=== PATIENT | male | born 1975 | race American Indian/Alaskan Native ===

== ENCOUNTER 2016-10-29 18:52 | Emergency (ER) | payer SELFPAY ==
[~2016-10-29] VITALS: Ht 165.1 cm; Wt 61.2 kg
[~2016-10-29 18:52] MED LIST: ASPIRIN 81MG TA81 MG PO; FLEXERIL10 MG PO; MEN'S ONE DAIL1 EACH PO; NOMEDS; NOMEDS XX; PROZAC 20MG CAP20 MG PO; TRAZADONE HYDR100 MG PO
--- NOTE | 2016-10-29 20:14 | Urgent Treatment Center Report ---
History of Present Issue Date/Time Seen by Provider 10/29/16 1900 Visit Reason Pt arrived:Walked Presenting Problem:PT ADVISES HE HAS A RASH AND WAS SCRATCHING AND NOW ONE OF HIS TESTICLES ARE BLEEDING Location if Accident: Onset of symptoms date/time:/ or onset unknown for:MEDICAL HX UNKNOWN Have you (or family members/close friends) recently traveled outside the [place]? N If Yes, where/when: Have you had exposure to infectious disease within the past month? TB? Other? Specify: Patient states that he has had a rash for over a month that itches worse at night, worse in his groin, axillary behind his knees. States that he has used several over the counter medications such as Cortisone to help with rash and itching but no relief. States that now it has been itching so bad that he noticed small areas of bleeding especially in his groin and under his arm. Source patient, family Exam Limitations no limitations ALLERGIES Coded Allergies: No Known Allergies (10/08/15) Home Medications Reported Medications No Known Home Medications History Medical History General CAD? No Angina: Yes [place]: No Hypertension? No Hyperlipidemia? No CHF? No DVT? No PE? No COPD? No Asthma? No Anemia? No GERD? No Gastric ulcers? No GI Bleed? No Hernia? No Thyroid Problems? No Hypothyroidism? No CVA? Yes Seizures? No Diabetes? No Insulin Dependent: No Insulin Pump: No Home FSBS? No Renal Insuffiency? No UTI? No Stones? No BPH? No GB Disease: No Nephritic Syndrome? No Asplenia? No Hepatitis? No Sickle Cell Disease? No Arthritis? No Migraines? No Cataracts? No Glaucoma? No MRSA? No HIV? No TB? No Anxiety? No Depression? Yes Cancer? No More? No Immunization HX DT/Tetanus Unknown Surgical Hx Previous Surgery?Y BROKEN LEG ARM Social History Smoking Hx Smoker: Current Every Day Smoker Tobacco: Yes Type Cigarettes Packs/day 1 1/2 - 2 Packs Alcohol Alcohol: Yes Review of Systems All Other Systems Reviewed and Negative Constitutional denies no symptoms reported, denies see HPI Eyes denies no symptoms reported, denies see HPI Skin rash, other (itchy rash for over a month) Physical Exam Vital Signs Vital Signs Date Time Temp Pulse Resp B/P Pulse O2 O2 Flow FiO2 Ox Delivery Rate 10/29 1919 99.4 98 16 132/95 98 Patient examined, observed intractable pruitits that is worse at night, Lesions noted on the flexor aspect of the wrist, Axillae, Buttocks, Genitalia, feet and behind knee. Patient had what appeared to be sepulveda threadlike tunnels on arms, legs chest. Patient states that the itching worsens at night and his brother that lives with him has had no symptoms Patient had scratched several spots in his groin area and noticed small spots of blood (KAREN LAU APRN) General Appearance normal appearance, itching mild irritation noted Respiratory Status Yes: trachea midline, chest symmetrical. No: respiratory distress. Cardiovascular normal exam Neurologic alert Medical Decision Making LABS/Meds/Orders Pt receiving controlled substance in ED? No Justice was queried for this patient? No Departure Departure Time of Disposition 2016 Disposition DC Home or Self Care(routine) Clinical Impression Primary Impression: Scabies infestation Condition STABLE Patient Instructions DI for Scabies, Permethrin Topical Additional Instructions Use Permethrin Cream as directed and repeat in 3 days if no improvement Follow up family doctor if no improvement of symptoms in 3-5 days Return to [facility] if needed Clean all bed linens as instructed Discharge Counseling Counseled pt/family regarding diagnosis, medications/RX, home care, follow up needs Prescriptions Current Visit Scripts Permethrin (Elimite 5% Cream; 60GM Tube) 60 GM TP ONCE #1 TUBE Ref 1 APPLY TO AFFECTED AREA(S); LEAVE ON FOR 10HRS, THEN RINSE OFF at 2017
[2016-10-29] MEDS ORDERED: ELIMITE 5%60 GM/TUB1 TP (20:16)
[2016-10-29 20:21] VITALS: BP 132/95
== END 2016-10-29 20:21 | disposition home or self-care (01) ==
LOC: UTC 18:52
DX: B86 Scabies (principal)

== ENCOUNTER 2017-05-09 21:58 | Emergency (ER) | payer SELFPAY ==
[~2017-05-09] VITALS: Ht 165.1 cm; Wt 59.0 kg
[~2017-05-09 21:58] MED LIST changes: +ELIMITE 5%60 GM/TUB1 TP
[2017-05-09] MEDS ORDERED: ASPIRIN 325MG325 MG PO (22:23)
[2017-05-09] MEDS ORDERED: TRAZADONE HYDR100 MG PO (22:24)
[2017-05-09] MEDS ORDERED: MULTIVITAMIN1 SGL PO (22:24)
--- OUTSIDE RECORDS SUMMARY | 2017-05-09 22:30 | External Medical Summary Rpt ---
Author Author , GÉNESIS CAPPS Address Unknown Phone [email or web address] Immunization Name Date Rout CVX Reac Dose Comm Prov Is Faci e tion ent ider Refu lity Give sed n Tdap 06-2 115 999 Hist H149 No H149 , 6-20 oric Adso 14 al rbed Info rmat ion - Sour ce Unsp ecif ied
--- OUTSIDE RECORDS SUMMARY | 2017-05-09 22:30 | External Medical Summary Rpt ---
Author Author [employer] Organization [employer] Address Unknown Phone Unavailable Purpose Continuity of Care Document - through 2016
--- OUTSIDE RECORDS SUMMARY | 2017-05-09 22:30 | External Medical Summary Rpt ---
Author Author [employer]OR Address Unknown Phone [email or web address] Purpose Continuity of Care Document - through 2016
--- OUTSIDE RECORDS SUMMARY | 2017-05-09 22:30 | External Medical Summary Rpt ---
Author Author IGOR Address Unknown Phone [email or web address] Purpose Continuity of Care Document - through 2016
--- OUTSIDE RECORDS SUMMARY | 2017-05-09 22:30 | External Medical Summary Rpt ---
Author Author , GÉNESIS CAPPS Address Unknown Phone [email or web address] Immunization Name Date Rout CVX Reac Dose Comm Prov Is Faci e tion ent ider Refu lity Give sed n Tdap 06-2 115 999 Hist H149 No H149 , 6-20 oric Adso 14 al rbed Info rmat ion - Sour ce Unsp ecif ied
--- NOTE | 2017-05-10 01:08 | Emergency Room Report ---
History of Present Illness Time Seen by [id number] Presenting Problem in Triage Pt arrived:Walked Presenting Problem:PT. STATES THAT DOG HAD BITTEN HIS TONGUE, LIP, AND SHE STATES HIS TONGUE IS SPLIT. PT. IS BLEEDING AND CAN'T GET IT TO STOP. 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 N Clinical Suspician of Infection? N Mental Status: 1 - Regular (Normal Baseline) Sepsis Risk:Possible Sepsis Risk Have you (or family members/close friends) recently traveled outside the [place]? N If Yes, where/when: Have you had exposure to infectious disease within the past month? N TB? Other? Specify: Source patient, RN notes reviewed, family, old records Exam Limitations no limitations Comment dog bite with known animal with facila/tongue injury Cardiac Chest Pain Chest pain indicative of cardiac No Timing/Duration this evening Severity moderate ALLERGIES Coded Allergies: No Known Allergies (10/08/15) Home Medications Active Scripts Permethrin (Elimite 5% Cream; 60GM Tube) 60 GM TP ONCE #1 TUBE Ref 1 Prov: 10/29/16 Reported Medications ASPIRIN (Aspirin 325MG) 325 MG PO DAILY MULTIVITAMIN (Multivitamins) 1 SGL PO DAILY Trazodone Hcl (Trazodone HCl) 100 MG PO QHSP PRN SLEEP History Medical History General CAD? No Angina: Yes CT: No Hypertension? No Hyperlipidemia? No CHF? No DVT? No PE? No COPD? No Asthma? No Anemia? No GERD? No Gastric ulcers? No GI Bleed? No Hernia? No Thyroid Problems? No Hypothyroidism? No CVA? Yes Seizures? No Diabetes? No Insulin Dependent: No Insulin Pump: No Home FSBS? No Renal Insuffiency? No End Stage Renal Disease? No UTI? No Stones? No BPH? No GB Disease: No Nephritic Syndrome? No Asplenia? No Hepatitis? No Sickle Cell Disease? No Arthritis? No Migraines? No Cataracts? No Glaucoma? No MRSA? No HIV? No TB? No Anxiety? No Depression? Yes Cancer? No More? No Immunization Hx DT/Tetanus Unknown Surgical Hx Previous Surgery?Y BROKEN LEG ARM Social History Smoking Hx Smoker: Current Every Day Smoker Tobacco: Yes Type Cigarettes Packs/day 1 1/2 - 2 Packs Alcohol Alcohol: Yes Drugs none Review of Systems All Other Systems Reviewed and Negative Constitutional denies fever Eyes denies drainage ENT see HPI. denies: ear discharge, epistaxis, throat pain, throat swelling. Respiratory denies cough, denies shortness of breath, denies wheezing Cardiovascular denies chest pain, denies palpitations, denies syncope Gastrointestinal denies abdominal pain, denies diarrhea, denies vomiting Genitourinary denies: dysuria, frequency, hesitancy, hematuria. Musculoskeletal denies back pain, denies joint pain, denies joint swelling, denies neck pain Skin see HPI, denies rash, other Psychiatric/Neurological denies headache, denies seizure Physical Exam Vital Signs Vital Signs Date Time Temp Pulse Resp B/P Pulse O2 O2 Flow FiO2 Ox Delivery Rate 05/09 2202 97.0 114 22 132/86 98 - WBC >12,000 or <4,000 or 10% bands? 2 or more SIRS Criteria Met? B/P:132/86 MAP:101 Creatinine >2.0? UA output<0.5ml/kg/hr for 2 hrs? Platelet count >100,000? Lactate >2.0mmol/1? INR >1.2 or PTT > than 60 sec? Evidence of Organ Dysfunction? Provider documented clinical suspician of infection? N Sepsis Criteria Count: 2 Sepsis Risk: Possible Sepsis Risk General Appearance no apparent distress Eye Exam - bilateral eye PERRL, bilateral eye EOMI Ear, Nose, Throat dental caries, gingival disease, no fx tooth and has 1 cm tongue laceration Neck supple Respiratory Status No: respiratory distress. 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 No Results/Orders Current Medication Orders Sig/Anam Start time Last Medication Dose Route Stop Time Status Admin Lidocaine HCl 0 .STK-MED ONE 05/09 2311 DC .ROUTE Procedures Laceration/Wound Repair Laceration/Wound Repair Risks/benefits discussed with pt/guardian? Yes Tetanus status up to date Wound Location tongue Wound Length (cm) 1 Wound's Depth, Shape sucutaneous tissue Wound Explored no FB identified Risk of retained FB explained to pt/guardian? Yes Irrigated w/ Saline (ccs) 0 Wound Prep Hibiclens, Saline Anesthesia 1% Lidocaine, Local Volume Anesthetic (ccs) 2 Wound Debrided none Wound Repaired With sutures Suture Size/Type 5:0, Vicryl Layer Closure No Total Number Sutures 5 Sterile Dressing Applied No Splint Applied No Sling Applied No Departure Departure Time of Disposition 0137 Disposition DC Home or Self Care(routine) Clinical Impression Primary Impression: Tongue laceration Qualifiers: Encounter type: initial encounter Qualified Code: S01.512A - Laceration without foreign body of oral cavity, initial encounter Secondary Impressions: Dog bite Qualifiers: Encounter type: initial encounter Qualified Code: W54.0XXA - Bitten by dog, initial encounter Condition STABLE Referrals Maikol CRUZ,Uche Fletcher (Family) Patient Instructions DI for Laceration Repair Additional Instructions see pcp and dentist for follow up Discharge Counseling Counseled pt/family regarding diagnosis, follow up needs Prescriptions Current Visit Scripts CEPHALEXIN (Keflex 500MG Capsule) 500 MG PO Q8H #30 CAP Amoxicillin/Potassium Clav (Augmentin 875-125 Tablet) 1 EACH PO BID #14 TAB ED Critical Care Critical Care No at 0148
[2017-05-10] MEDS ORDERED: KEFLEX 500MG.500 MG PO (01:39)
[2017-05-10] MEDS ORDERED: AUGMENTIN 875-1 EACH PO (01:47)
[2017-05-10 01:58] VITALS: BP 131/78
== END 2017-05-10 02:01 | disposition home or self-care (01) ==
LOC: ER 21:58
PROC: 0HQ1XZZ Repair Face Skin, External Approach (ICD-10-PCS; principal; 2017-05-09)
DX: S01.512A Laceration without foreign body of oral cavity, initial encounter (principal); W54.0XXA Bitten by dog, initial encounter; K02.9 Dental caries, unspecified; Z72.0 Tobacco use